=== PATIENT | male | born 1955 | race Caucasian/White ===

== ENCOUNTER → 2023-10-04 16:12 | Outpatient (BNVA) | payer SELFPAY | PROVIDERS: Visit Provider Emergency Medicine | DX: R30.0 Dysuria (principal) | CPT/HCPCS: 81000; 87086 ==

== ENCOUNTER → 2024-03-25 13:43 | Outpatient (BNVA) | payer SELFPAY | PROVIDERS: PCP Nurse Practitioner; Visit Provider Nurse Practitioner | DX: R30.0 Dysuria (principal) | CPT/HCPCS: 81000; 87086 ==

== ENCOUNTER 2024-05-05 09:14 | Outpatient (CLI) | payer SELFPAY ==
--- NOTE | 2024-05-05 09:30 | US_ITS ---
WS: [id number] Exam: US renal BI* [id number] Date/Time of Exam: 05/05/2024 9:28 AM Reason For Exam: R31.9 - Hematuria, unspecified The kidneys are of normal size, shape and location. No solid or cystic renal mass noted. The RIGHT kidney measures 10.2 x 5.4 x 5.5 cm. The RIGHT renal cortex measures 1.1 cm in greatest thickness. The LEFT kidney measures 10.7 x 4.8 x 5 cm. The LEFT renal cortex measures 1.1 cm in greatest thickness. No sign of renal obstruction. At least 2 prominent stones are noted in the urinary bladder. The largest stone measures in the range of 3.3 cm in greatest diameter. There appears to be some thickening of the bladder roberto that could represent chronic cystitis. No obvious soft tissue mass in the bladder. US/US renal BI* [id number] IMPRESSION: 1. Sonographically unremarkable kidneys. 2. At least 2 prominent stones in the urinary bladder. The largest measuring ap proximately 3.3 cm in greatest diameter. There is also some generalized wall th ickening of the bladder that might reflect chronic cystitis.
== END 2024-05-05 09:15 | disposition home or self-care (01) ==
PROVIDERS: PCP Nurse Practitioner; Visit Provider Nurse Practitioner
DX: R31.9 Hematuria, unspecified (principal); N21.0 Calculus in bladder; R93.49 Abnormal radiologic findings on diagnostic imaging of other urinary organs
CPT/HCPCS: 76770